=== PATIENT | female | born 1990 | race Two or more races ===

== ENCOUNTER 2018-11-09 17:10 | Emergency (ER) | payer MEDICAID ==
[~2018-11-09] VITALS: Ht 149.9 cm; Wt 63.5 kg
[~2018-11-09 17:10] MED LIST: BLISOVI FE 1-21 EACH PO
[2018-11-09] MEDS ORDERED: BREO ELLIPTA 11 EACH IH (17:26)
[2018-11-09] MEDS ORDERED: PROZAC10 MG ORAL (17:26)
[2018-11-09] MEDS ORDERED: LORAZEPAM1 MG ORAL (17:26)
--- NOTE | 2018-11-09 17:50 | NUR ---
ED Nurse Note:pt. came from home with c/o chest pain for 1 month, she is A/Ox4 ambulatory, VSS, EKG was done, pt. placed on property assessment monitor
[2018-11-09 18:04] VITALS: BP 120/80
--- NOTE | 2018-11-09 18:41 | Emergency Room Report ---
History of Present Illness General Chief Complaint: Chest Pain Source: Medical Record Present Illness HPI 28-year-old female presents to the emergency department complaining of 8 out of 10 in severity left-sided sharp chest pain that she states is intermittent and has been going on for over one month. Patient states when she experiences the pain and she stops in the middle of of breath as exhaling or inhaling exacerbates the symptoms. Patient states that pain lasts several seconds and then resolves. Patient reports that she has experienced her symptoms both on exertion and at rest. Patient denies cardiac history she states that her most recent primary care visit she was told that her thyroid is high. Denies cough she does report history of asthma and states she is currently taking an inhaled steroid. She was told by traffic assistant that she has "inflammation in the lungs "patient was seen here in the emergency department 1 month prior for similar symptoms and had a negative workup. Denies palpitation, dizziness, syncope or shortness of breath. Denies trauma or fall. Allergies: Coded Allergies: No Known Allergies (Unverified , 10/08/18) Patient History Past Medical History: see triage record, old chart reviewed Past Surgical History: none Pertinent Family History: none Last Menstrual Period: 10/09/18 Now: No Reviewed Nursing Documentation: PMH: Agreed; PSxH: Agreed Nursing Documentation-PMH Past Medical History: No History, Except For Hx Cardiac Problems: No - 09/2017 Review of Systems All Other Systems: negative except mentioned in HPI Physical Exam Vital Signs Date Time Temp Pulse Resp B/P (MAP) Pulse Ox O2 Delivery O2 Flow Rate FiO2 11/09/18 17:20 98.8 92 18 97 Room Air 11/09/18 18:04 120/80 Sp02 EP Interpretation: reviewed, normal General Appearance: no apparent distress, alert, GCS 15, non-toxic Head: normocephalic, atraumatic Eyes: bilateral eye normal inspection, bilateral eye PERRL ENT: hearing grossly normal, normal voice Neck: full range of motion Respiratory: chest non-tender - Not reproducible, lungs clear, normal breath sounds, no respiratory distress, no wheezing, speaking full sentences Cardiovascular #1: regular rate, rhythm, no edema, normal capillary refill Musculoskeletal: back normal, gait/station normal, normal range of motion, non- tender Neurologic: alert, oriented x3, responsive, motor strength/tone normal, sensory intact, speech normal, grossly normal Psychiatric: judgement/insight normal Skin: normal color, no rash, warm/dry, well hydrated Medical Decision Making PA Attestation Dr. galarza is my supervising Physician whom patient management has been discussed with. Diagnostic Impression: Primary Impression: Nonspecific chest pain ER Course 28-year-old female presents to the emergency department complaining of 8 out of 10 in severity left-sided sharp chest pain that she states is intermittent and has been going on for over one month. Patient states when she experiences the pain and she stops in the middle of of breath as exhaling or inhaling exacerbates the symptoms. Patient states that pain lasts several seconds and then resolves. Patient reports that she has experienced her symptoms both on exertion and at rest. Patient denies cardiac history she states that her most recent primary care visit she was told that her thyroid is high. Denies cough she does report history of asthma and states she is currently taking an inhaled steroid. She was told by traffic assistant that she has "inflammation in the lungs "patient was seen here in the emergency department 1 month prior for similar symptoms and had a negative workup. Denies palpitation, dizziness, syncope or shortness of breath. Denies trauma or fall. Ddx considered but are not limited to AK, pneumonia, contusion, costochondritis , PE, ACS, Shoulder strain, Chest wall contusion. aortic dissection, pleurisy Vital signs: are WNL, pt. is afebrile H&PE are most consistent with nonspecific chest pain--the patient is resting comfortably she is not short of breath nontoxic in appearance and in no acute distress. ORDERS: - EK NSR ED INTERVENTIONS: - none at this time -I do not identify an emergent condition at this time. With current presentation , pt. is stable for close outpatient follow up and conservative treatment. D/ w pt. to return promptly to ED with worsening or new symptoms.- Pt. verbalizes' understanding and agreement with proposed treatment plan.proposed treatment plan. DISCHARGE: At this time pt. is stable for d/c to home. Will provide printed patient care instructions, and any necessary prescriptions. Care plan and follow up instructions have been discussed with the patient prior to discharge. EKG Diagnostic Results EP Interpretation: Dr. Rubalcava Rate: normal - 81 bpm Rhythm: NSR ST Segments: no acute changes ASA given to the pt in ED: No PA Scribe Text This Interpretation was scribed by YAIR Huggins. Last Vital Signs Date Time Temp Pulse Resp B/P (MAP) Pulse Ox O2 Delivery O2 Flow Rate FiO2 11/09/18 18:04 81 18 Room Air 11/09/18 18:04 98.8 120/80 97 Disposition: HOME, SELF-CARE Condition: Stable Scripts Prednisone* (PREDNISONE*) 20 Mg Tablet 40 MG ORAL DAILY for 5 Days, #10 TAB Prov: Albina Huggins 11/09/18 Naproxen* (NAPROXEN*) 500 Mg Tablet 500 MG ORAL TWICE A WEEK, #30 TAB 0 Refills Prov: Albina Huggins 11/09/18 Patient Instructions: Nonspecific Chest Pain Additional Instructions: Take medications as directed. Follow up with a Primary Care Provider in 3-5 days, even if your symptoms have resolved. FOR PULMONOLOGY AND CARDIOLOGY REFERRAL NEEDED at the discretion of your PCP. Return sooner to ED if new symptoms occur, or current symptoms become worse. - Please note that this Emergency Department Report was dictated using [employer] modeling specialist technology software, occasionally this can lead to erroneous entry secondary to interpretation by the dictation equipment. Albina Huggins November 09, 2018 18:41
[2018-11-09] MEDS ORDERED: PREDNISONE20 MG ORAL (18:42)
[2018-11-09] MEDS ORDERED: NAPROXEN500 M2 ORAL (18:42)
[2018-11-09 18:54] VITALS: BP 120/80
--- NOTE | 2018-11-09 18:55 | NUR ---
ER DISCHARGE NOTE: Patient is cleared to be discharged per ERMD, pt is aox4, on room air, with stable vital signs. pt was given dc and prescription instructions, pt was able to verbalize understanding, pt is able to ambulate with steady gait. pt took all belongings.
--- NOTE | 2018-11-10 20:22 | Cardiology Report ---
APPROVED REPORT EKG Measurement Heart [id number] Normal sinus rhythm Normal ECG
== END 2018-11-09 18:50 | disposition home or self-care (01) ==
LOC: EMR 18:00
DX: R07.9 Chest pain, unspecified (principal)
CPT/HCPCS: 93005; 99283